=== PATIENT | female | born 1940 | race Two or more races ===

== ENCOUNTER 2017-11-27 23:08 | Inpatient (IN) | payer MEDICARE, OTHER ==
[~2017-11-27] VITALS: Ht 152.4 cm; Wt 74.4 kg
[2017-11-28] MEDS ORDERED: MAGNESIUM HYDROXIDE 30 ML UDC PO PRN (02:00)
[2017-11-28] MEDS ORDERED: LORAZEPAM 0.5 MG TABLET PO PRN (02:00)
[2017-11-28] MEDS ORDERED: MAG HYDROX/AL HYDROX/SIMETH 30 ML UDC PO PRN (02:00)
[2017-11-28] MEDS ORDERED: ACETAMINOPHEN 325 MG TABLET PO PRN (02:00)
--- NOTE | 2017-11-28 02:15 | NUR ---
GPS/RN ADMITTED THIS 77 Y/O FEMALE. PT IS ON A 5150 HOLD FOR GD. PT ADMITTING DX OF [place]. UNDER THE CARE OF DR HANSNO FOR PSYCH AND DR. DUNN FOR MEDICAL. BOTH DR'S AWARE OF NEW ADMISSION. PER HOLD PATIENT HAS PSYCHOTIC SYMPTOMS INCLUDING DELUSIONS OF FOOD BEING POISONED, DEMONS/SPIRITS INVADING THE HOME AND PARANOIA/FEAR OF BEING POSSESSED. PT REFUSING TO EAT, TAKE HER MEDICATION AND FOLLOW HOUSE RULES. HER ERRATIC AND BIZARRE BEHAVIORS INCLUDE AGGRESSION TOWARDS HER ADULT KIDS, COVERING WINDOWS AND DOOR WITH TOWELS AND BIZARRE SPEECH. UPON FACE TO FACE ASSESSMENT, PATIENT IS ALERT AND ORIENTED X 2, CONFUSED, DISORIENTED, DISORGANIZED, ANXIOUS. PT REFUSED TO SIGN CONSENT FORMS. VITAL SIGNS STABLE. PT REFUSED SKIN ASSESSMENT. REFUSED MRSA TO BE TAKEN. BELONGINGS AND VALUABLES CHECKED FOR ANY CONTRABAND ITEMS. NO CONTRABAND FOUND. NO COMPLAIN OF PAIN/DISCOMFORT AT THIS TIME. NO ACUTE DISTRESS NOTED. ALL NEEDS ATTENDED. WILL CONTINUE TO MONITOR FOR SAFETY AND BEHAVIOR [id number]
[2017-11-28 02:54] VITALS: BP 132/83
[2017-11-28 08:00] VITALS: BP 146/79
[2017-11-28] MEDS ORDERED: RISP0.253 PO (08:51)
[2017-11-28] MEDS ORDERED: TRIH2TAB3 PO (08:51)
[2017-11-28] MEDS ORDERED: DIVA250T6 PO (08:51)
[2017-11-28] MEDS: TRIHEXYPHENIDYL HCL 2 MG TABLET PO SCH ×2 (12:02→16:57)
[2017-11-28] MEDS: risperiDONE 1 MG TABLET PO SCH ×2 (12:02→16:57)
--- NOTE | 2017-11-28 14:35 | NUR ---
Initial Discharge Plan: Pt resides at [address] [place] [id number]; with her daughter, Judith Hicks and son, Artur Muniz. Upon discharge pt would like to return home to her family. SW contacted pts family for collateral information at # above however there was no answer; nor voice recording to leave a message. SW will follow up to ensure pt is safely and adequately discharged.
[2017-11-28 16:00] VITALS: BP 138/60
[2017-11-28 20:00] VITALS: BP 147/78
[2017-11-28] MEDS: DIVALPROEX SODIUM 250 MG TABLET.DR PO SCH (21:32)
[2017-11-28] MEDS: ZOLPIDEM TARTRATE 5 MG TABLET PO PRN (21:32)
--- NOTE | 2017-11-28 21:32 | NUR ---
GPS NOTES C/O " CAN I PLEASE GET SOMETHING TO HELP ME SLEEP?" AMBIEN 5 MG PO GIVEN ORDERED. WILL CONTINUE TO MONITOR FOR SAFETY.
[2017-11-29 07:05] LABS: BASOPHILS % (AUTO) 0.3 % (0.0-2.0); EOSINOPHILS % (AUTO) 9.4 % (0.0-6.0); HEMATOCRIT 36 % (33-45); HEMOGLOBIN 12.1 g/dL (11.5-14.8); LYMPHOCYTES # (AUTO) 0.4 /CMM (0.8-4.8); LYMPHOCYTES % (AUTO) 13.9 % (20.0-44.0); MEAN CORPUSCULAR HEMOGLOBIN 33 PG (26.0-33.0); MEAN CORPUSCULAR HGB CONC 34 g/dl (31.0-36.0); MEAN CORPUSCULAR VOLUME 96 fL (82-100); MONOCYTES # (AUTO) 0.4 /CMM (0.1-1.30); MONOCYTES % (AUTO) 13.2 % (2.0-12.0); NEUTROPHILS # (AUTO) 1.9 /CMM (1.8-8.9); NEUTROPHILS % (AUTO) 63.2 % (43.0-81.0); PLATELET COUNT (AUTO) 182 /CMM (150-450); RDW COEFFICIENT OF VARIATION 14.4 (11.5-15.0); RED BLOOD CELL COUNT(AUTO) 3.72 MIL/uL (4.0-5.2)
[2017-11-29 07:23] LABS: ALANINE AMINOTRANSFERASE 18 U/L (12-78); ALBUMIN 3.6 g/dL (3.4-5.0); ALKALINE PHOSPHATASE 98 U/L (46-116); ASPARTATE AMINOTRANSFERASE 14 U/L (15-37); BILIRUBIN,TOTAL 0.7 mg/dL (0.2-1.0); CALCIUM, SERUM 9.4 mg/dL (8.5-10.1); CARBON DIOXIDE 26 mmol/L (21-32); CHLORIDE 106 mmol/L (98-107); CHOLESTEROL 199 mg/dL (<200); CREATININE 0.9 mg/dL (0.6-1.3); GLUCOSE 85 mg/dL (74-106); HDL CHOLESTEROL 89 mg/dL (40-60); LDL 95 mg/dL (0-99); POTASSIUM 3.7 mmol/L (3.5-5.1); SODIUM SERUM 141 mmol/L (136-145); TOTAL PROTEIN, SERUM 6.9 g/dL (6.4-8.2); TRIGLYCERIDES 68 mg/dL (30-150); UREA NITROGEN, BLOOD 16 mg/dL (7-18)
[2017-11-29 08:00] VITALS: BP 124/74
[2017-11-29] MEDS: DIVALPROEX SODIUM 250 MG TABLET.DR PO SCH ×2 (08:21→20:14)
[2017-11-29] MEDS: risperiDONE 1 MG TABLET PO SCH ×2 (08:21→16:18)
[2017-11-29] MEDS: TRIHEXYPHENIDYL HCL 2 MG TABLET PO SCH ×2 (08:21→16:18)
[2017-11-29 16:00] VITALS: BP 140/75
--- NOTE | 2017-11-29 19:52 | NUR ---
RECEIVED PATIENT IN HER ROOM SITTING ON BED WELL GROOMED AND VISITING WITH THREE FAMILY MEMBERS. PT IS CALM, ALERT AND ORIENTED X 2, PATIENT IS IRANIAN SPEAKING BUT THROUGH SON LUIS'S TRANSLATION: SHE DENIES PAIN, DENIES HALLUCINATIONS OR PARANOIA, DENIES SI AND HI. NO APPARENT DISTRESS. SON SAYS PATIENT HAS MADE NO BIZARRE STATEMENTS, HER MEMORY IS INTACT AND HER CONVERSATION IS ABOUT FAMILY MEMBERS AND HOW THEY ARE DOING. SON SAID PATIENT REQUESTED TO GET A SLEEPING PILL TONIGHT TO HELP HER SLEEP, WILL ASSESS AT BEDTIME. WILL CONTINUE TO MONITOR FOR SAFETY AND BEHAVIOR [id number].
[2017-11-29 20:00] VITALS: BP 133/77
[2017-11-29] MEDS: ZOLPIDEM TARTRATE 5 MG TABLET PO PRN (21:13)
[2017-11-30 08:00] VITALS: BP 127/66
[2017-11-30] MEDS: TRIHEXYPHENIDYL HCL 2 MG TABLET PO SCH ×2 (08:47→16:28)
[2017-11-30] MEDS: DIVALPROEX SODIUM 250 MG TABLET.DR PO SCH ×2 (08:47→21:09)
[2017-11-30] MEDS: risperiDONE 1 MG TABLET PO SCH ×2 (08:47→16:28)
[2017-11-30 10:01] LABS: BASOPHILS % (AUTO) 0.6 % (0.0-2.0); EOSINOPHILS % (AUTO) 12.8 % (0.0-6.0); HEMATOCRIT 38 % (33-45); HEMOGLOBIN 12.9 g/dL (11.5-14.8); LYMPHOCYTES # (AUTO) 0.6 /CMM (0.8-4.8); LYMPHOCYTES % (AUTO) 17.4 % (20.0-44.0); MEAN CORPUSCULAR HEMOGLOBIN 33 PG (26.0-33.0); MEAN CORPUSCULAR HGB CONC 34 g/dl (31.0-36.0); MEAN CORPUSCULAR VOLUME 95 fL (82-100); MONOCYTES # (AUTO) 0.3 /CMM (0.1-1.30); MONOCYTES % (AUTO) 9.6 % (2.0-12.0); NEUTROPHILS % (AUTO) 59.6 % (43.0-81.0); PLATELET COUNT (AUTO) 190 /CMM (150-450); RDW COEFFICIENT OF VARIATION 14.2 (11.5-15.0); RED BLOOD CELL COUNT(AUTO) 3.98 MIL/uL (4.0-5.2); WHITE BLOOD COUNT (AUTO) 3.4 K/uL (4.3-11.0)
[2017-11-30 10:31] LABS: CALCIUM, SERUM 9.7 mg/dL (8.5-10.1); CARBON DIOXIDE 27 mmol/L (21-32); CHLORIDE 105 mmol/L (98-107); CREATININE 0.9 mg/dL (0.6-1.3); GLUCOSE 95 mg/dL (74-106); PHOSPHORUS 3.7 mg/dL (2.5-4.9); POTASSIUM 3.8 mmol/L (3.5-5.1); SODIUM SERUM 139 mmol/L (136-145); UREA NITROGEN, BLOOD 12 mg/dL (7-18)
[2017-11-30 13:02] LABS: APPEARANCE,URINE CLEAR (CLEAR); BILIRUBIN,URINE NEGATIVE (NEGATIVE); BLOOD, URINE NEGATIVE Ery/uL (NEGATIVE); COLOR,URINE OTHER (YELLOW); KETONES,URINE NEGATIVE (NEGATIVE); LEUKOCYTE ESTERASE ,URINE NEGATIVE (NEGATIVE); NITRITE, URINE NEGATIVE (NEGATIVE); PROTEIN,URINE NEGATIVE (NEGATIVE); UGLUCOSE NEGATIVE (NEGATIVE); UROBILINOGEN,URINE 0.2 EU/dL (0.2)
[2017-11-30 16:00] VITALS: BP 112/68
[2017-11-30 20:25] VITALS: BP 111/48
[2017-11-30] MEDS: ZOLPIDEM TARTRATE 5 MG TABLET PO PRN (22:45)
[2017-12-01 07:31] LABS: BASOPHILS % (AUTO) 0.9 % (0.0-2.0); EOSINOPHILS % (AUTO) 19.3 % (0.0-6.0); HEMATOCRIT 34 % (33-45); HEMOGLOBIN 11.7 g/dL (11.5-14.8); LYMPHOCYTES # (AUTO) 0.5 /CMM (0.8-4.8); LYMPHOCYTES % (AUTO) 18.2 % (20.0-44.0); MEAN CORPUSCULAR HEMOGLOBIN 33 PG (26.0-33.0); MEAN CORPUSCULAR HGB CONC 35 g/dl (31.0-36.0); MEAN CORPUSCULAR VOLUME 94 fL (82-100); MONOCYTES # (AUTO) 0.3 /CMM (0.1-1.30); MONOCYTES % (AUTO) 12.6 % (2.0-12.0); NEUTROPHILS # (AUTO) 1.2 /CMM (1.8-8.9); PLATELET COUNT (AUTO) 157 /CMM (150-450); RDW COEFFICIENT OF VARIATION 14.6 (11.5-15.0); RED BLOOD CELL COUNT(AUTO) 3.56 MIL/uL (4.0-5.2); WHITE BLOOD COUNT (AUTO) 2.6 K/uL (4.3-11.0)
[2017-12-01 07:49] LABS: CALCIUM, SERUM 9.4 mg/dL (8.5-10.1); CARBON DIOXIDE 28 mmol/L (21-32); CHLORIDE 106 mmol/L (98-107); CREATININE 0.9 mg/dL (0.6-1.3); GLUCOSE 82 mg/dL (74-106); MAGNESIUM 2.1 mg/dL (1.8-2.4); PHOSPHORUS 3.6 mg/dL (2.5-4.9); POTASSIUM 3.9 mmol/L (3.5-5.1); SODIUM SERUM 141 mmol/L (136-145); UREA NITROGEN, BLOOD 13 mg/dL (7-18)
[2017-12-01 08:09] LABS: BAND % (MANUAL) 2 % (0.0-5.0); EOSINOPHILS % (MANUAL) 18 % (0-4); LYMPHOCYTES % (MANUAL) 17 % (16-48); MONOCYTES % (MANUAL) 10 % (0-11.0); NEUTROPHILS % (MANUAL) 53 (42-76)
[2017-12-01] MEDS: TRIHEXYPHENIDYL HCL 2 MG TABLET PO SCH ×2 (08:20→16:44)
[2017-12-01] MEDS: DIVALPROEX SODIUM 250 MG TABLET.DR PO SCH ×2 (08:20→21:42)
[2017-12-01] MEDS: risperiDONE 1 MG TABLET PO SCH ×2 (08:20→16:45)
[2017-12-01 08:53] VITALS: BP 115/61
--- NOTE | 2017-12-01 11:05 | NUR ---
CLARE received a phone call from pts daughter Claribel [phone] stating that she was downstairs in the lobby and was demanding to speak to MD and to see pt. CLARE explained to pts daughter that visiting hours are from 6-8pm Mon-Fri and that the MD was not available to speak to her until tomorrow via phone call. Pts daughter was angry asking why the MD had not contacted her to discuss pts evaluation. CLARE again explained to pts daughter that she would make MD aware that she would like to speak to him. Pts daughter then stated that she was not leaving until the MD contacted her today. CLARE re-explained to pts daughter that she would inform MD tomorrow that she would like to speak to him. CLARE informed pts daughter that she would also call her tomorrow with an update from MD.
[2017-12-01 16:00] VITALS: BP 110/83
[2017-12-01 20:00] VITALS: BP 132/58
[2017-12-01] MEDS: ZOLPIDEM TARTRATE 5 MG TABLET PO PRN (21:43)
[2017-12-02 06:46] LABS: BASOPHILS % (AUTO) 0.2 % (0.0-2.0); EOSINOPHILS % (AUTO) 23.3 % (0.0-6.0); HEMATOCRIT 34 % (33-45); HEMOGLOBIN 11.5 g/dL (11.5-14.8); LYMPHOCYTES # (AUTO) 0.5 /CMM (0.8-4.8); LYMPHOCYTES % (AUTO) 18.2 % (20.0-44.0); MEAN CORPUSCULAR HEMOGLOBIN 33 PG (26.0-33.0); MEAN CORPUSCULAR HGB CONC 34 g/dl (31.0-36.0); MEAN CORPUSCULAR VOLUME 95 fL (82-100); MONOCYTES # (AUTO) 0.4 /CMM (0.1-1.30); MONOCYTES % (AUTO) 13.4 % (2.0-12.0); NEUTROPHILS # (AUTO) 1.2 /CMM (1.8-8.9); NEUTROPHILS % (AUTO) 44.9 % (43.0-81.0); PLATELET COUNT (AUTO) 149 /CMM (150-450); RDW COEFFICIENT OF VARIATION 14.1 (11.5-15.0); RED BLOOD CELL COUNT(AUTO) 3.52 MIL/uL (4.0-5.2); WHITE BLOOD COUNT (AUTO) 2.7 K/uL (4.3-11.0)
[2017-12-02 07:30] LABS: CARBON DIOXIDE 25 mmol/L (21-32); CHLORIDE 105 mmol/L (98-107); CREATININE 0.8 mg/dL (0.6-1.3); GLUCOSE 79 mg/dL (74-106); PHOSPHORUS 3.6 mg/dL (2.5-4.9); POTASSIUM 3.8 mmol/L (3.5-5.1); SODIUM SERUM 140 mmol/L (136-145); UREA NITROGEN, BLOOD 12 mg/dL (7-18)
[2017-12-02 09:08] VITALS: BP 108/56
[2017-12-02] MEDS: TRIHEXYPHENIDYL HCL 2 MG TABLET PO SCH ×2 (09:11→16:14)
[2017-12-02] MEDS: DIVALPROEX SODIUM 250 MG TABLET.DR PO SCH ×3 (09:14→16:14)
[2017-12-02] MEDS: risperiDONE 1 MG TABLET PO SCH ×2 (09:15→16:14)
[2017-12-02 10:09] LABS: EOSINOPHILS % (MANUAL) 21 % (0-4); LYMPHOCYTES % (MANUAL) 20 % (16-48); MONOCYTES % (MANUAL) 4 % (0-11.0); NEUTROPHILS % (MANUAL) 55 (42-76)
--- NOTE | 2017-12-02 12:31 | NUR ---
CLARE consulted with pts psychiatrist, Dr. Palacios for the purpose of discharge planning. CLARE asked MD if he could follow up with pts daughter, Claribel [phone] who had requested for an update regarding her mother's progress the previous day. MD contacted pts daughter on this date. Per MD. pt could discharge home on , 12/04/17. In addition, pts daughter Claribel stated she and other family members could care for pt in the home(per MD report). CLARE will plan accordingly in order to ensure pt is safely and adequately discharged.
--- NOTE | 2017-12-02 14:00 | NUR ---
GPS/RN FIELD AIDE BARBARA AWARE OF LABS.
[2017-12-02 16:00] VITALS: BP 120/70
[2017-12-02 20:36] VITALS: BP 130/78
[2017-12-02] MEDS: ZOLPIDEM TARTRATE 5 MG TABLET PO PRN (22:21)
[2017-12-03 08:00] VITALS: BP 106/58
[2017-12-03] MEDS: DIVALPROEX SODIUM 250 MG TABLET.DR PO SCH ×3 (08:22→16:45)
[2017-12-03] MEDS: risperiDONE 1 MG TABLET PO SCH ×2 (08:22→16:45)
[2017-12-03] MEDS: TRIHEXYPHENIDYL HCL 2 MG TABLET PO SCH ×2 (08:22→16:45)
--- NOTE | 2017-12-03 10:33 | NUR ---
CLARE contacted pts daughter Judith [phone] to coordinate transportation for pts discharge tomorrow 12/04/17. Pts daughter will be picking pt up via private vehicle at 3:00pm.
--- NOTE | 2017-12-03 10:34 | NUR ---
CLARE contacted LOPEZ MAYERS at [facility] [phone] to schedule follow-up appointment for pt. CLARE left message for call back.
[2017-12-03 16:00] VITALS: BP 124/60
[2017-12-03 20:00] VITALS: BP 143/51
[2017-12-03 20:24] VITALS: BP 143/81
--- NOTE | 2017-12-03 21:00 | NUR ---
RN NOTES OFFERED SLEEPING PILL- PT. REFUSED
--- NOTE | 2017-12-04 06:30 | NUR ---
RN NOTES PT. REFUSED TO HAVE A BATH THIS MORNING. WITH THE HELP OF THE DEVELOPMENT EDITOR WE EXPLAINED TO THE PATIENT THE BENEFITS OF TAKING A SHOWER. PT. STILL REFUSED TO TAKE A SHOWER
[2017-12-04 08:00] VITALS: BP 120/54
[2017-12-04] MEDS: risperiDONE 1 MG TABLET PO SCH (08:21)
[2017-12-04] MEDS: DIVALPROEX SODIUM 250 MG TABLET.DR PO SCH ×2 (08:21→12:14)
[2017-12-04] MEDS: TRIHEXYPHENIDYL HCL 2 MG TABLET PO SCH (08:21)
--- NOTE | 2017-12-04 08:41 | NUR ---
DR. HANSON GAVE AN ORDER TO D/C HOLD AND D/C HOME AND TO FOLLOW UP WITH PSYCH AND MEDICAL DOCTORS.
--- NOTE | 2017-12-04 13:15 | NUR ---
GPS/RN-NOTES PATIENT DISCHARGE TO HOME TODAY. DR. HANSON AND WEB COMMUNICATIONS SPECIALIST BARBARA MADE AWARE AND AGREES OF PATIENT DISCHARGE WITH ORDERS.PATIENT DID NOT VERBALIZE SI/HI ,DENIES VISUAL/AUDITORY HALLUCINATION AT THE TIME OF DISCHARGE. MEMS ENGINEER BY HER DAUGHTER YOBANI AND ONE OF HER SON VIA PRIVATE CAR. ALL DISCHARGE MEDICATIONS WAS REVIEWED WITH PATIENT'S DAUGHTER YOBANI PAGAN.DISCHARGE PAPERS WAS GIVEN TO HER DAUGHTER INCLUDING RX. PATIENT LEFT THE UNIT WITH ALL HER BELONGINGS, IN STABLE CONDITION,AMBULATORY WITH STEADY GAIT. ASSISTED BY ACTIVITY STAFF IN THE LOBBY FOR SAFETY.
--- NOTE | 2017-12-04 14:20 | NUR ---
DISCHARGE NOTE: Pt was discharged at 1:15pm home to [address] [facility] [address] via private transportation by daughter Judith [phone] who agrees with discharge plan. Pts appeared in a pleasant mood with congruent affect and denied visual/auditory hallucinations and denied suicidal/homicidal ideations. CLARE scheduled follow-up appointment with psychiatrist Dr. Tavera with [address] [place] [address] on December 11, 2017 at 1:00pm. CLARE has faxed medication list, labs, and psych progress note to [phone]. Pts daughter will schedule follow up appointment with pts Home Organizer: Dr. David Darnell [address] [place] [address] [address] [place], [place] [address] . Pt will be seen by Psychiatrist: Dr. Nilda Russ [place] [address] [address] [place] [address] thereafter. The multidisciplinary exitcare form was done, printed, signed, and given to the patient.
== END 2017-12-04 13:15 | disposition home or self-care (01) | DRG 885 ==
LOC: GPS 11-28 01:39
PROVIDERS: ADMIT Psychiatry & Neurology Psychiatry; ATTEND Registered Nurse
DX: F20.0 Paranoid schizophrenia (principal); G93.40 Encephalopathy, unspecified; F41.9 Anxiety disorder, unspecified; G31.84 Mild cognitive impairment of uncertain or unknown etiology; F09 Unspecified mental disorder due to known physiological condition; D72.819 Decreased white blood cell count, unspecified; G47.9 Sleep disorder, unspecified; Z87.891 Personal history of nicotine dependence; Z88.0 Allergy status to penicillin
CPT/HCPCS: 36415; 80048-TC; 80053-TC; 80061-TC; 80164-TC; 81000-TC; 83735-TC; 84100-TC; 85025-TC